=== PATIENT | male | born 1960 | race Caucasian/White ===

== ENCOUNTER → 2020-05-25 | Outpatient (CLI) | payer BC, OTHER ==
--- NOTE | 2020-05-26 08:42 | RAD ---
PROCEDURE: LUMBAR SPINE MIN 4V, KNEE BILAT 2V CLINICAL INDICATION / HISTORY: Lumbar back pain. TECHNIQUE: 5 views of the lumbar spine were obtained COMPARISON: None FINDINGS: Five lumbar segments are identified. Lumbar vertebral bodies are normal in height. There is subtle retrolisthesis of L3 on L4 and anterolisthesis of L4 on L5.. Disc height shows multilevel disc space mild narrowing. This is best appreciated at L4-L5 and at L5-S1. Multilevel facet hypertrophy is present. There appears to be bilateral pars defects at L4 and at L5. The bilateral oblique views show evidence of foraminal narrowing bilaterally most conspicuous at L4-L5.. Pedicles are intact. IMPRESSION: Multilevel lumbar spinal degenerative spondylosis with listhesis as described, likely in the setting of pars defects at L4 and L5. This can be confirmed with CT or MRI as clinically warranted. PROCEDURE: LUMBAR SPINE MIN 4V, KNEE BILAT 2V CLINICAL INDICATION / HISTORY: Pain in the left knee. Pain in the right knee.. TECHNIQUE: AP, lateral, and tunnel views of the left and right knees. COMPARISON: L-spine x-rays same day FINDINGS: The osseous structures are intact. The articular surfaces are smooth. There is mild medial joint space narrowing with suggestion of mild varus deformity to the left knee. No intra-articular loose bodies. The alignment is within normal limits. The soft tissues are unremarkable. No obvious joint effusion. No radio-opaque foreign bodies are identified. IMPRESSION: No fracture or dislocation is identified. Mild degenerative changes in the left knee. No significant abnormal findings appreciated in the right knee. Electronically signed by: Zac Barillas MD (05/26/2020 8:39 AM) [id number]
== END | disposition home or self-care (01) ==
LOC: RAD 14:26
PROVIDERS: ATTEND Physician Assistant
DX: M47.816 Spondylosis without myelopathy or radiculopathy, lumbar region (principal); M48.07 Spinal stenosis, lumbosacral region; M43.16 Spondylolisthesis, lumbar region; M47.819 Spondylosis without myelopathy or radiculopathy, site unspecified; M25.561 Pain in right knee; M25.562 Pain in left knee
CPT/HCPCS: 72110; 73560